=== PATIENT | male | born 1955 | race Caucasian/White ===

== ENCOUNTER → 2021-01-21 | Outpatient (CLI) | payer MEDICARE ==
--- NOTE | 2021-01-21 12:12 | US ---
EXAMINATION TYPE: US duplex aorta DATE OF EXAM: 01/21/2021 COMPARISON: NONE CLINICAL HISTORY: 65-year-old male Z13.6 Encounter for screening for cardiovascular disease. TECHNIQUE: Multiple sonographic images of the abdominal aorta are obtained. 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 Otherwise, no evidence for AAA.
== END ==
LOC: RADUSWWP 08:54
PROVIDERS: ATTEND Family Medicine
DX: Z13.6 Encounter for screening for cardiovascular disorders (principal); I77.811 Abdominal aortic ectasia
CPT/HCPCS: 93979